=== PATIENT | female | born 1975 | race Hispanic/Latino ===

== ENCOUNTER 2023-02-26 13:09 | Inpatient (IN) | payer SELFPAY ==
[2023-02-26] MEDS ORDERED: Morphine 4 MG/ML VIAL ONE (13:48)
[2023-02-26] MEDS ORDERED: Ondansetron PF 4 MG/2 ML Vial ONE (13:48)
[2023-02-26 14:05] LABS: #Eosinphils 0.5 thou/uL (0.0-0.7); #Monocytes 2.1 thou/uL (0.11-0.59); #Neutrophils 13.6 thou/uL (1.40-6.50); %Basophils 0.2 % (0.0-1.0); %Eosinophils 2.4 % (0.0-10.0); %Lymphocytes 16.5 % (21.0-51.0); %Monocytes 10.6 % (0.0-10.0); %Neutrophils 69.2 % (42.0-75.0); Hematocrit 32.1 % (36.0-47.0); Hemoglobin 10.8 g/dL (12.0-16.0); Mean Corpuscular HGB CONC 33.6 g/dL (32.0-36.0); Mean Corpuscular Hemoglobin 29.6 pg (27.0-31.0); Mean Corpuscular Volume 87.9 fl (78.0-98.0); Mean Platelet Volume 10.9 fL (7.4-10.4); Platelet Count 129 10x3/uL (130-400); RBC Distribution Width 23.1 % (11.5-14.5); Red Blood Cell (RBC) Count 3.65 mill/uL (4.20-5.40); White Blood Cell (WBC) Count 19.6 10x3/uL (4.8-10.8)
[2023-02-26 14:18] LABS: BHCG - Serum Negative (NEGATIVE); Pregs Control Background? CLEAR/WHITE (CLR/WHITE); Pregs Control Bar Appear? YES (CONTROL BAR)
[2023-02-26 14:31] LABS: ALT (SGPT) 47 U/L (8-55); AST (SGOT) 183 U/L (5-34); Albumin 2.6 g/dL (3.5-5.0); Alkaline Phosphatase 613 U/L (40-110); Anion Gap 17 mmol/L (10-20); BUN (Urea Nitrogen) 23 mg/dL (7.0-18.7); Bilirubin, Total 15.2 mg/dL (0.2-1.2); CK (CPK) 205 U/L (29-168); Calc. Creatinine Clearance 0 mL/min (70-130); Calcium 8.4 mg/dL (7.8-10.44); Carbon Dioxide 21 mmol/L (22-29); Chloride 96 mmol/L (98-107); Estimated GFR 71; Globulin 4.2 g/dL (2.4-3.5); Glucose 86 mg/dL (70-105); Lipase Less than 4 U/L (8-78); Potassium 3.6 mmol/L (3.5-5.1); Protein, Total 6.8 g/dL (6.0-8.3); Sodium 130 mmol/L (136-145)
[2023-02-26] MEDS ORDERED: Piperacillin/Tazobactam 4.5 GM VIAL ONE (14:40)
[2023-02-26] MEDS ORDERED: Vancomycin 1 GM/200 ML (FROZEN) BAG ONE (15:12)
[2023-02-26 15:15] LABS: INR-International Normal Ratio 1.6
[2023-02-26 17:38] LABS: Lactic Acid 1.7 mmol/L (0.5-2.2)
[2023-02-26] MEDS ORDERED: Morphine 2 MG/ML VIAL SLOW IVP PRN (19:13)
[2023-02-26] MEDS ORDERED: Ondansetron PF 4 MG/2 ML Vial IVP PRN (19:14)
[2023-02-26] MEDS ORDERED: Acetaminophen 325 MG TAB PO PRN (19:14)
[2023-02-26] MEDS ORDERED: Ondansetron ODT 4 MG TAB PO PRN (19:14)
[2023-02-26] MEDS ORDERED: Potassium Chloride 20 MEQ TAB PO SCH (19:15)
[2023-02-26] MEDS ORDERED: Albumin 25% 25 GM/100 ML BOT IVPB SCH (19:30)
[2023-02-26 21:03] LABS: Magnesium 1.9 mg/dL (1.6-2.6)
[2023-02-26] MEDS ORDERED: Piperacillin/Tazobactam 3.375 GM in Sodium Chloride 0.9% 100 ML IVPB SCH (22:00)
[2023-02-26] MEDS: Piperacillin/Tazobactam 3.375 GM in Sodium Chloride 0.9% 100 ML IVPB SCH (22:02)
[2023-02-26] MEDS ORDERED: Lactated Ringer's 1,000 ML IV SCH (22:45)
[2023-02-27 01:30] VITALS: BMI 32.7
[2023-02-27 04:04] LABS: #Basophils 0.1 thou/uL (0.0-0.2); #Eosinphils 0.6 thou/uL (0.0-0.7); #Monocytes 2.1 thou/uL (0.11-0.59); %Basophils 0.3 % (0.0-1.0); %Eosinophils 3.2 % (0.0-10.0); %Lymphocytes 14.6 % (21.0-51.0); %Monocytes 11.1 % (0.0-10.0); %Neutrophils 69.8 % (42.0-75.0); Hemoglobin 9.8 g/dL (12.0-16.0); Mean Corpuscular HGB CONC 32.7 g/dL (32.0-36.0); Mean Corpuscular Hemoglobin 29.3 pg (27.0-31.0); Mean Corpuscular Volume 89.8 fl (78.0-98.0); Mean Platelet Volume 10.8 fL (7.4-10.4); Platelet Count 111 10x3/uL (130-400); RBC Distribution Width 23.2 % (11.5-14.5); Red Blood Cell (RBC) Count 3.34 mill/uL (4.20-5.40); White Blood Cell (WBC) Count 18.7 10x3/uL (4.8-10.8)
[2023-02-27 04:32] LABS: ALT (SGPT) 39 U/L (8-55); AST (SGOT) 174 U/L (5-34); Albumin 2.7 g/dL (3.5-5.0); Alkaline Phosphatase 534 U/L (40-110); Anion Gap 17 mmol/L (10-20); BUN (Urea Nitrogen) 24 mg/dL (7.0-18.7); Bilirubin, Total 15.2 mg/dL (0.2-1.2); Calc. Creatinine Clearance 86 mL/min (70-130); Calcium 8.4 mg/dL (7.8-10.44); Carbon Dioxide 20 mmol/L (22-29); Chloride 98 mmol/L (98-107); Estimated GFR 73; Globulin 3.7 g/dL (2.4-3.5); Glucose 60 mg/dL (70-105); Protein, Total 6.4 g/dL (6.0-8.3); Sodium 131 mmol/L (136-145)
[2023-02-27] MEDS ORDERED: Dextrose 5% in Water 1,000 ML IV PRN (04:40)
[2023-02-27] MEDS ORDERED: Dextrose 50% Abboject 50 ML SYRINGE SLOW IVP PRN (04:40)
[2023-02-27] MEDS ORDERED: Glucagon 1 MG/ML KIT IM PRN (04:40)
[2023-02-27] MEDS: Piperacillin/Tazobactam 3.375 GM in Sodium Chloride 0.9% 100 ML IVPB SCH ×3 (05:23→21:42)
[2023-02-28] MEDS: Piperacillin/Tazobactam 3.375 GM in Sodium Chloride 0.9% 100 ML IVPB SCH (05:10)
[2023-02-28 07:36] LABS: Hematocrit 31.5 % (36.0-47.0); Hemoglobin 10.1 g/dL (12.0-16.0); Mean Corpuscular HGB CONC 32.1 g/dL (32.0-36.0); Mean Corpuscular Hemoglobin 28.9 pg (27.0-31.0); Mean Corpuscular Volume 90.3 fl (78.0-98.0); Mean Platelet Volume 10.2 fL (7.4-10.4); Platelet Count 123 10x3/uL (130-400); RBC Distribution Width 24.2 % (11.5-14.5); Red Blood Cell (RBC) Count 3.49 mill/uL (4.20-5.40); White Blood Cell (WBC) Count 19.8 10x3/uL (4.8-10.8)
[2023-02-28 07:47] LABS: Delete Auto Diff?? YES; Manual Diff?? YES
[2023-02-28 07:54] LABS: ALT (SGPT) 42 U/L (8-55); AST (SGOT) 169 U/L (5-34); Albumin 2.6 g/dL (3.5-5.0); Alkaline Phosphatase 591 U/L (40-110); Anion Gap 16 mmol/L (10-20); BUN (Urea Nitrogen) 27 mg/dL (7.0-18.7); Bilirubin, Total 16.8 mg/dL (0.2-1.2); Calc. Creatinine Clearance 78 mL/min (70-130); Calcium 8.5 mg/dL (7.8-10.44); Carbon Dioxide 19 mmol/L (22-29); Chloride 102 mmol/L (98-107); Estimated GFR 65; Globulin 3.8 g/dL (2.4-3.5); Glucose 92 mg/dL (70-105); Potassium 3.7 mmol/L (3.5-5.1); Protein, Total 6.4 g/dL (6.0-8.3); Sodium 133 mmol/L (136-145)
[2023-02-28] MEDS ORDERED: Morphine ER 15 MG TAB PO SCH ×2 (09:00)
[2023-02-28 11:11] LABS: Band 19 % (5-11); CellaVision Operator ID LAB.GE; Eosinophils 3 % (0-10); Lymphocytes 12 % (21-51); Monocytes 10 % (0-10); Myelocyte 1 % (0-0); Neutrophil 55 % (42-75); Platelet Adequacy Comment Platelets Decreased; Polychromasia SLIGHT = 2-3 cells HPF (0-2); Total Cell Count 100
[2023-02-28 11:58] VITALS: TEMP 98.1
[2023-02-28 16:11] VITALS: BP 99/67
== END 2023-02-28 15:51 | disposition home or self-care (01) | DRG 436 ==
LOC: ERS 13:09 → 2NO 18:59 → OBSVTOIN 02-27 08:26 → SURG B 02-27 18:53
PROVIDERS: ADMIT Internal Medicine; ATTEND Internal Medicine Critical Care Medicine
DX: C78.7 Secondary malignant neoplasm of liver and intrahepatic bile duct (principal); C18.9 Malignant neoplasm of colon, unspecified; E87.1 Hypo-osmolality and hyponatremia; K83.09 Other cholangitis; E80.6 Other disorders of bilirubin metabolism; E88.09 Other disorders of plasma-protein metabolism, not elsewhere classified; K80.20 Calculus of gallbladder without cholecystitis without obstruction
CPT/HCPCS: 36415; 36416; 74181; 76705; 80053; 82248; 82550; 83605; 83690; 83735; 83880; 84703; 85025; 85610; 85730; 86850; 86900; 86901; 87040; 93005; J2270; J2405; J2543; J3370-JW; J3490; J7120; P9047